=== PATIENT | male | born 1950 | race Caucasian/White ===

== ENCOUNTER 2020-08-16 09:46 | Emergency (ER) | payer MEDICARE, SELFPAY ==
--- NOTE | ~2020-08-16 | XR_ITS ---
EXAMINATION: XR chest 1V portable EXAM DATE: 08/16/2020 10:55 INDICATION: Cough and shortness of breath. History high blood pressure. TECHNIQUE: Portable AP frontal chest x-ray was obtained. Comparison is made to prior examination from 04/26/2016. FINDINGS: The lungs are clear. There are no pleural effusions. Cardiac silhouette is prominent but magnified on this AP technique. There is no pneumothorax suspected. The bones and soft tissues are unremarkable. IMPRESSION: No acute cardiopulmonary findings. Reviewed, dictated and finalized at location B. COORDINATOR
[2020-08-16 09:56] VITALS: BP 158/79; PULSE 56; RESP 13; TEMP 36.7; O2SAT 96
[2020-08-16 10:01] VITALS: O2SAT 96
--- NOTE | 2020-08-16 10:38 | ED.GENADULT ---
HPI - General Adult General Chief complaint: Upper Respiratory Infection Stated complaint: cough Time Seen by Provider: 08/16/20 10:08 Source: patient History of Present Illness HPI narrative: Patient is a 70 y/o male complaining of severe cough for 1 week. He states that his cough is mostly dry and it's relieved by OTC cough medicine. He also has a headache. He has no fever or chill. He had an episode of SOB a few days ago, but does not feel SOB at this time. He was in contact with someone who later tested for COVID recently. He states that his doctor called in an antibiotic last week. Related Data Home Medications Medication Instructions Recorded Confirmed hydroxychloroquine 200 mg tablet 400 mg PO DAILY tablet 06/25/19 sildenafil (pulm.hypertension) 20 100 mg PO DAILY PRN tablet 06/25/19 mg tablet pentoxifylline 400 mg 400 mg PO TID 03/04/20 03/04/20 tablet,extended release Allergies Allergy/AdvReac Type Severity Reaction Status Date / Time No Known Allergies Allergy Uncoded 05/28/19 07:30 Review of Systems Constitutional: Constitutional: Denies chills, Denies fever(s), Reports headache(s) and Denies weakness Eyes: Eyes: Denies blurry vision ENT: Reports headache(s) and Denies neck pain Cardiovascular: Cardiovascular: Denies chest pain and Reports dyspnea Respiratory: Respiratory: Reports cough and Reports dyspnea Gastrointestinal: Gastrointestinal: Denies abdominal pain, Denies diarrhea, Denies nausea and Denies vomiting Genitourinary: Genitourinary: Denies hematuria and Denies dysuria Musculoskeletal: Musculoskeletal: Denies back pain and Denies neck pain Neurologic: Reports headache(s) and Denies weakness [facility] Past Medical History Medical History (Updated 08/16/20 @ 12:58 by Lidya Sanabria MD) Acute bronchitis Exposure to COVID-19 virus Family History Family History (Updated 02/13/19 @ 14:45 by DOCTOR UNKNOWN) Mother Patient's mother is , Onset Age: 92 Grandparent Cerebrovascular accident, Onset Age: 88 Father Family history of lung cancer, Onset Age: 58 Social History Social History Smoking status: Never smoker Alcohol intake: current Gender identity (if verbalized by the patient): Male Exam Const: General: no acute distress and well developed Orientation/consciousness: oriented to person, oriented to place, oriented to time and patient oriented x3 HENMT: Head: normocephalic Ears: external ears normal General nose exam: Normal external nose present Eyes: General: appearance normal, both eyes and all related structures Conjunctivae: conjunctivae normal Neck: Neck: normal visual inspection and full ROM Chest: Chest palpation & inspection: normal inspection of the chest and no tenderness Resp: Effort & Inspection: normal respiratory effort and able to speak in complete sentences Cardio: Rate: regular rate Rhythm: regular rhythm GI: GI Palp: No abdominal tenderness and Yes Soft to palpation Skin: General skin exam: normal color and turgor normal Neuro: General: oriented to person, oriented to place, oriented to time and patient oriented x3 Cognition (Neuro): normal cognition Extrem: General: normal to inspection, full ROM and no pedal edema Psych: Appearance: grossly normal Mental Status: mental status grossly normal Affect: normal affect Course Vital Signs Vital signs: Vital Signs Temperature 36.7 C 08/16/20 09:56 Pulse Rate 56 L 08/16/20 09:56 Respiratory Rate 13 08/16/20 09:56 Blood Pressure 158/79 H 08/16/20 09:56 Pulse Oximetry 96 08/16/20 09:56 Temperature 36.7 C 08/16/20 09:56 Pulse Rate 78 08/16/20 13:04 Respiratory Rate 18 08/16/20 13:04 Blood Pressure 132/68 08/16/20 13:04 Pulse Oximetry 99 08/16/20 13:04 Medical Decision Making Vital Signs Vital Signs: Vital Signs Temperature 36.7 C 08/16/20 09:56 Pulse Rate 56 L 08/16/20 09:56 R
[2020-08-16 11:34] LABS: Eosinophils Percent Auto 0.4 % (0-4.4); Hematocrit 42.9 % (42.0-52.0); Hemoglobin 14.8 g/dL (14.0-18.0); Immature Granulocyte Absolute 0.02 K/mm3 (0.00-0.031); Immature Granulocyte Percent A 0.7 % (0-0.5); Lymphocytes Absolute Auto 0.54 K/mm3 (0.9-3.2); Lymphocytes Percent Auto 19.5 % (18.3-44.2); Mean Corpuscular HGB Conc 34.5 g/dl (32-36); Mean Corpuscular Hemoglobin 32.4 pg (26-34); Mean Corpuscular Volume 93.9 fl (80-100); Mean Platelet Volume 9.2 fl (7.4-10.4); Monocytes Absolute Auto 0.3 K/mm3 (0.1-0.6); Monocytes Percent Auto 11.9 % (2.6-8.5); Neutrophils Absolute Auto 1.9 K/mm3 (1.3-6.7); Neutrophils Percent Auto 67.5 % (45.5-73.1); Platelet Count Result 113 k/mm3 (150-375); Red Blood Count 4.57 M/mm3 (4.6-6.20); Red Cell Distribution Width 11.9 % (11.5-14.5); White Blood Count 2.8 K/mm3 (4.5-10.0)
[2020-08-16 11:54] LABS: Alanine Aminotransferase 37 U/L (4-50); Albumin Level 3.9 g/dL (3.5-5.1); Alkaline Phosphatase 39 U/L (38-126); Anion Gap 6 mmol/L (8-16); Aspartate Amino Transferase 43 U/L (17-59); Bilirubin,Total 0.7 mg/dL (0.2-1.3); Blood Urea Nitrogen 17 mg/dL (9-20); Calcium 8.5 mg/dL (8.4-10.2); Carbon Dioxide 29 mmol/L (22-30); Chloride 105 mmol/L (98-107); Estimated CRCL calculation 70 ml/min; Estimated Glomerular Filt Rate > 60; Glucose 93 mg/dL (75-110); Sodium 140 mmol/L (137-145)
[2020-08-16 12:38] VITALS: BP 100/73; PULSE 55; RESP 18; O2SAT 99
[2020-08-16 13:04] VITALS: BP 132/68; PULSE 78; RESP 18; O2SAT 99
[2020-08-16 19:06] LABS: SARS-CoV-2 RNA PCR Positive
== END 2020-08-16 13:06 | disposition home or self-care (01) ==
PROVIDERS: Emergency Provider Emergency Medicine; PCP Family Medicine
DX: U07.1 COVID-19 (principal); J06.9 Acute upper respiratory infection, unspecified
CPT/HCPCS: 36415; 71045; 80053; 85025; 99283; C9803; U0003

== ENCOUNTER 2020-08-19 10:30 | Outpatient (RCR) | payer MEDICARE, SELFPAY ==
--- NOTE | 2020-08-18 16:06 | PC.NURSE ---
Patient given instruction on Bamlanivimab treatment with understanding stated.
[2020-08-19] MEDS: ACETAMINOPHEN 325 MG TABLET 650 MG PO (10:44)
[2020-08-19] MEDS: diphenhydrAMINE HCl CAP 25 MG CAPSULE PO (10:44)
[2020-08-19] MEDS: FAMOTIDINE 20 MG TABLET PO (10:45)
--- NOTE | 2020-08-19 10:50 | PC.NURSE ---
Patient given written instruction on Bamlanivimab-discharge instruction sheet and facts sheet with understanding stated.
[2020-08-19 11:00] VITALS: BP 138/66; PULSE 48; RESP 18; TEMP 36.9; O2SAT 98
[2020-08-19 12:20] VITALS: BP 136/81; PULSE 45; O2SAT 97
--- NOTE | 2020-08-20 12:37 | PC.NURSE ---
Attempt to reach patient to check on him after his infusion for Covid.
== END 2020-08-30 11:20 ==
LOC: AMCINF 10:30
PROVIDERS: PCP Family Medicine; Visit Provider Family Medicine
DX: Z23 Encounter for immunization (principal); U07.1 COVID-19; I10 Essential (primary) hypertension
CPT/HCPCS: A9270; J7050; M0239; Q0239

== ENCOUNTER 2021-01-17 10:45 | Outpatient (CLI) | payer MEDICARE, SELFPAY ==
--- NOTE | 2021-01-17 11:12 | EST_ITS ---
Patient Info Name: Eric Rebollar Age: 70 years : 1950 Gender: Male Ht: 70 in Wt: 205 lbs BSA: 2.17 m2 Exam Date: 01/17/2021 11:18 AM Exam Location: [facility] Stress Patient Status: Outpatient Admit Date: 01/17/2021 Staff Ordering Physician: Sudeep Burnett MD Attending Provider: Sudeep Burnett MD Exercise Technologist: Brandie Monaco RDCS Exercise Physician: Lavelle Vallejo DO Exam Type: CA stress test treadmill Study Info Indications R06.00 - Dyspnea, unspecified An exercise stress test was performed. Summary 1. 1. Inconclusive Charles exercise stress test for ischemic ST changes by ECG criteria due to achieving only 57% of MPHR for age group. He is on Metoprolol and last dose was 24 hours ago. 2. 2. Reduced functional capacity, achieving 7 METs of workload. 3. 3. Baseline slow sinus bradycardia. 4. 4. No imaging with stress testing. 5. 5. Patient informed of the above results. Protocol: Charles Stress ECG Details Stage: REST Duration (min): 8 min : 25 sec Speed (mph): 0.0 Grade (%): 0 HR (bpm): 44 SBP (mmHg): 137 DBP (mmHg): 78 METS: --- Stage: REST Duration (min): 8 min : 36 sec Speed (mph): 0.0 Grade (%): 0 HR (bpm): 43 SBP (mmHg): 137 DBP (mmHg): 78 METS: --- Stage: REST Duration (min): 8 min : 48 sec Speed (mph): 0.0 Grade (%): 0 HR (bpm): 43 SBP (mmHg): 137 DBP (mmHg): 78 METS: --- Stage: REST Duration (min): 9 min : 11 sec Speed (mph): 0.0 Grade (%): 0 HR (bpm): 43 SBP (mmHg): 137 DBP (mmHg): 78 METS: --- Stage: REST Duration (min): 9 min : 25 sec Speed (mph): 0.0 Grade (%): 0 HR (bpm): 44 SBP (mmHg): 137 DBP (mmHg): 78 METS: --- Stage: REST Duration (min): 9 min : 50 sec Speed (mph): 0.0 Grade (%): 0 HR (bpm): 43 SBP (mmHg): 137 DBP (mmHg): 78 METS: --- Stage: REST Duration (min): 10 min : 35 sec Speed (mph): 0.0 Grade (%): 0 HR (bpm): 44 SBP (mmHg): 137 DBP (mmHg): 78 METS: --- Stage: REST Duration (min): 11 min : 53 sec Speed (mph): 0.0 Grade (%): 0 HR (bpm): 45 SBP (mmHg): 137 DBP (mmHg): 78 METS: --- Stage: STAGE 1 Duration (min): 1 min : 0 sec Speed (mph): 1.7 Grade (%): 10 HR (bpm): 59 SBP (mmHg): 137 DBP (mmHg): 78 METS: --- Stage: STAGE 1 Duration (min): 2 min : 0 sec Speed (mph): 1.7 Grade (%): 10 HR (bpm): 67 SBP (mmHg): 137 DBP (mmHg): 78 METS: --- Stage: STAGE 1 Duration (min): 3 min : 0 sec Speed (mph): 1.7 Grade (%): 10 HR (bpm): 70 SBP (mmHg): 137 DBP (mmHg): 78 METS: --- Stage: STAGE 2 Duration (min): 1 min : 0 sec Speed (mph): 2.5 Grade (%): 12 HR (bpm): 79 SBP (mmHg): 172 DBP (mmHg): 77 METS: --- Stage: STAGE 2 Duration (min): 2 min : 0 sec
== END 2021-01-17 10:46 | disposition home or self-care (01) ==
PROVIDERS: PCP Family Medicine; Visit Provider Family Medicine
DX: R06.00 Dyspnea, unspecified (principal)
CPT/HCPCS: 93017

== ENCOUNTER 2021-12-04 11:10 | Emergency (ER) | payer MEDICARE, SELFPAY ==
[2021-12-04 11:13] VITALS: BP 130/84; PULSE 69; RESP 18; TEMP 37.1; O2SAT 100
--- NOTE | 2021-12-04 11:36 | PC.NURSE ---
Pt states he is unable to give urine sample at this time. Informed pt that we need urine and if unable to give sample we would have to straight cath pt. Pt states I doubt that is going to happen .
[2021-12-04 11:54] LABS: Basophils Percent Auto 0.2 % (0.2-1.2); Eosinophils Absolute Auto 0.1 K/mm3 (0-0.3); Eosinophils Percent Auto 0.8 % (0-4.4); Hematocrit 35.4 % (42.0-52.0); Hemoglobin 12.4 g/dL (14.0-18.0); Immature Granulocyte Absolute 0.07 K/mm3 (0.00-0.031); Immature Granulocyte Percent A 0.6 % (0-0.5); Lymphocytes Absolute Auto 0.89 K/mm3 (0.9-3.2); Lymphocytes Percent Auto 7.4 % (18.3-44.2); Mean Corpuscular Hemoglobin 32.5 pg (26-34); Mean Corpuscular Volume 92.9 fl (80-100); Mean Platelet Volume 9.7 fl (7.4-10.4); Monocytes Absolute Auto 1.1 K/mm3 (0.1-0.6); Monocytes Percent Auto 8.7 % (2.6-8.5); Neutrophils Absolute Auto 9.9 K/mm3 (1.3-6.7); Neutrophils Percent Auto 82.3 % (45.5-73.1); Platelet Count Result 187 k/mm3 (150-375); Red Blood Count 3.81 M/mm3 (4.6-6.20); Red Cell Distribution Width 12.7 % (11.5-14.5); White Blood Count 12.1 K/mm3 (4.5-10.0)
[2021-12-04 12:03] LABS: Lactic Acid Reflex 2.1 mmol/L (0.7-2.0)
[2021-12-04 12:06] LABS: Alanine Aminotransferase 42 U/L (4-50); Albumin Level 3.3 g/dL (3.5-5.1); Alkaline Phosphatase 53 U/L (38-126); Anion Gap 9 mmol/L (8-16); Aspartate Amino Transferase 47 U/L (17-59); Bilirubin,Total 0.9 mg/dL (0.2-1.3); Blood Urea Nitrogen 56 mg/dL (9-20); Calcium 8.2 mg/dL (8.4-10.2); Carbon Dioxide 26 mmol/L (22-30); Chloride 100 mmol/L (98-107); Estimated CRCL calculation 32 ml/min; Estimated Glomerular Filt Rate 30; Glucose 145 mg/dL (65-110); Potassium 2.8 mmol/L (3.4-5.0); Sodium 135 mmol/L (137-145)
--- NOTE | 2021-12-04 12:07 | ED.GENADULT ---
HPI - General Adult General Chief complaint: Weakness Stated complaint: Lethergy, Chills, PCP Sent Patient Time Seen by Provider: 12/04/21 11:31 Source: patient and RN notes reviewed Mode of arrival: ambulatory Limitations: no limitations History of Present Illness HPI narrative: 71-year-old male presented to the emergency department for evaluation of subjective fever, chills and generalized weakness since Sunday. Patient states when he was driving back home from out of town he began having increased fatigue and generalized weakness. Patient does describe intermittent chills. Patient states he has also had periods of sweating but has not measured his temperature. Patient states that the symptoms persisted through Sunday. Patient did take an at home COVID test that was negative. Patient had a phone call with his primary care physician and he was urged to present to the emergency department for evaluation. Patient denies any current chest pain or shortness of breath. Patient denies any abdominal pain and denies any associated nausea vomiting or diarrhea. Patient is vaccinated and boosted against COVID. Patient denies any prior history of enlarged prostate or urinary retention. Related Data Home Medications Medication Instructions Recorded Confirmed hydroxychloroquine 200 mg tablet 400 mg PO DAILY tablet 06/25/19 06/02/21 sildenafil (pulm.hypertension) 20 100 mg PO DAILY PRN tablet 06/25/19 06/02/21 mg tablet pentoxifylline 400 mg 400 mg PO TID 03/04/20 06/02/21 tablet,extended release atorvastatin 20 mg tablet 20 mg PO DAILY 06/03/21 hydrochlorothiazide 12.5 mg tablet 12.5 mg PO DAILY 06/03/21 cyanocobalamin (vitamin B-12) 1,000 mcg PO DAILY 11/18/21 1,000 mcg tablet Allergies Allergy/AdvReac Type Severity Reaction Status Date / Time No Known Allergies Allergy Unknown Uncoded 12/04/21 11:22 Review of Systems Review of Systems: CONSTITUTIONAL: See HPI EYES: Denies visual changes, redness, or discharge. ENT: Denies rhinorrhea, congestion, sore throat, or otalgia. CARDIOVASCULAR: Denies chest pain, palpitations, or edema. RESPIRATORY: Denies cough or dyspnea. GASTROINTESTINAL: Denies abdominal pain, nausea, vomiting, or diarrhea. GENITOURINARY: Denies dysuria or hematuria. SKIN: Denies rash or itching. MUSCULOSKELETAL: Denies back pain, joint pain, or myalgia. NEUROLOGIC: Denies headache, numbness, or weakness. [facility] Past Medical History Medical History (Updated 12/04/21 @ 18:27 by Yomi Gómez MD) Acute bronchitis Altitude sickness preventative measures BMI 31.0-31.9,adult Cognitive decline (~06/02/21) the patient scored 21/30 on his cognitive exam 06/02/2021 COVID-19 (08/16/20) Dyspnea on exertion Leukopenia WBC normal at 4.8 on 11/15/2021. Vitamin B12 deficiency anemia (11/15/21) Level low at 339 with goal greater than 400 on 11/15/2021. Family History Family History (Updated 02/13/19 @ 14:45 by DOCTOR UNKNOWN) Mother Patient's mother is , Onset Age: 92 Grandparent Cerebrovascular accident, Onset Age: 88 Father Family history of lung cancer, Onset Age: 58 Social History Social History (Updated 06/02/21 @ 10:42 by Pallavi Jimenez MA) Smoking status: Never smoker Alcohol intake: current Drinks per week: 3 Substance use: never Substance use type: does not use Gender identity (if verbalized by the patient): Male Spiritual care concerns: No Exam Narrative: APPEARANCE: Well appearing, no pain, no distress, well-nourished. HEAD: normocephalic, atraumatic. EYES: PERRLA/EOMI, conjunctivae clear. THROAT: Pharynx clear, no exudate. NECK: Supple. No adenopathy, no masses. RESPIRATORY: Airway patent, respirations nonlabored. Clear to auscultation bilaterally, no rales, rhonchi, wheezing. CARDIOVASCULAR: Regular rate and rhythm without murmurs rubs or gallops. ABDOMINAL: Soft, nontender, nondistended, normal bowel sounds
[2021-12-04] MEDS: POTASSIUM CHLORIDE 20 MEQ PACKET (FOR LIQUID) 40 MEQ PO (12:28)
[2021-12-04] MEDS: SODIUM CHLORIDE 0.9% IV 1,000 ML 999 ML IV CONT ×2 (12:28→14:56)
[2021-12-04] MEDS: KCL 20 MEQ/SW 100 ML 100 ML 50 MEQ IVPB (12:49)
[2021-12-04 13:00] VITALS: BP 123/78; PULSE 87; RESP 18; O2SAT 99
[2021-12-04] MEDS: SODIUM CHLORIDE 0.9% IV 1,000 ML 125 ML (13:41)
[2021-12-04 14:36] LABS: Influenza A QL RT-PCR Negative (Negative); Influenza B QL RT-PCR Negative (Negative); SARS-CoV-2 RNA PCR Negative
[2021-12-04 14:47] LABS: Reflex Lactic Acid Yes or No Add Lactic
[2021-12-04 15:11] VITALS: BP 136/74; PULSE 74; RESP 20; O2SAT 100
[2021-12-04 15:53] LABS: Anion Gap 9 mmol/L (8-16); Blood Urea Nitrogen 59 mg/dL (9-20); Calcium 8.3 mg/dL (8.4-10.2); Carbon Dioxide 25 mmol/L (22-30); Chloride 101 mmol/L (98-107); Estimated CRCL calculation 34 ml/min; Estimated Glomerular Filt Rate 31; Glucose 150 mg/dL (65-110); Potassium 2.8 mmol/L (3.4-5.0); Sodium 135 mmol/L (137-145)
[2021-12-04 16:16] VITALS: BP 91/59; PULSE 64; RESP 18; O2SAT 99
[2021-12-04 16:33] LABS: Potassium 3.4 mmol/L (3.4-5.0)
[2021-12-04 16:57] LABS: Anion Gap 7 mmol/L (8-16); Blood Urea Nitrogen 58 mg/dL (9-20); Calcium 7.7 mg/dL (8.4-10.2); Carbon Dioxide 24 mmol/L (22-30); Chloride 103 mmol/L (98-107); Estimated CRCL calculation 37 ml/min; Estimated Glomerular Filt Rate 35; Glucose 111 mg/dL (65-110); Potassium 3.5 mmol/L (3.4-5.0); Sodium 134 mmol/L (137-145)
[2021-12-04 17:18] LABS: Add Urine Microscopic? YES; Appearance Urine Cloudy (Clear); Bilirubin Urine Negative (Negative); Blood Urine Negative (Negative); Color Urine Amber (Yellow); Glucose Urine UA Negative (Negative); Ketones Urine Negative (Negative); Leukocyte Esterase Ur 1+ LEU/UL (Negative); Mucus Urine Few /lpf; Nitrate Urine Negative (Negative); Protein Urine 1+ mg/dL (Negative); Specific Grav Ur 1.021 (1.001-1.035); Squamous Epithelial Cell Urine Few /hpf (Few); WBC Urine 16-20 /hpf
[2021-12-04 18:23] VITALS: BP 146/89; PULSE 74; RESP 12; O2SAT 99
== END 2021-12-04 18:40 | disposition home or self-care (01) ==
PROVIDERS: Emergency Provider Emergency Medicine; PCP Family Medicine
DX: N17.9 Acute kidney failure, unspecified (principal); N39.0 Urinary tract infection, site not specified; Z20.822 Contact with and (suspected) exposure to COVID-19; Z79.899 Other long term (current) drug therapy; Z86.16 Personal history of COVID-19
CPT/HCPCS: 36415; 80048; 80053; 81001; 83605; 84132; 85025; 87086; 87088; 87502; 96361; 96365; 96366; 96375; 99284; A9270; C9803; J0696; J3480; J7030; U0003; U0005

== ENCOUNTER 2021-12-07 14:37 | Inpatient (IN) | payer MEDICARE, SELFPAY ==
[2021-12-07] VITALS (8 sets, daily range): BP systolic 86–124; BP diastolic 49–86; PULSE 66–86; RESP 16–18; TEMP 36.1–38.1; O2SAT 95–99; BMI 32.2
--- NOTE | ~2021-12-07 | CT_ITS ---
EXAMINATION: CT abdomen pelvis w con DATE: 12/07/2021 20:50 INDICATION: fevers, chills, tender prostate TECHNIQUE: Computed tomography (CT) of the abdomen and pelvis was performed with 100 mL Omnipaque-350 intravenous contrast. Automated exposure control and iterative reconstruction technique were employe d. The dose-length product was 824.81 mGy-cm. COMPARISON: None FINDINGS: Lower thorax: Bibasilar atelectasis. Liver: Simple left lobe cyst. Biliary/Gallbladder: Gallbladder is normal. No bile duct dilation. Spleen: Normal. Pancreas: Pancreas is enlarged, with surrounding inflammatory change. Well-circumscribed 1.7 cm cysti c lesion in the pancreatic body. Irregular 3 cm collection of fluid and gas in the pancreatic head im mediately adjacent to the duodenal C-loop. Adrenals:No mass. Kidneys: Bilateral stranding and cysts as well as lesions that are too small to characterize. GI tract: No small or large bowel dilation. Appendix not visualized. Mesentery/Peritoneum: No ascites, mass, or free air. Retroperitoneum: No mass.. Pelvis: Bladder wall thickening, likely on the basis of outlet obstruction from a markedly enlarged p rostate. Soft Tissues: Soft tissues and body wall unremarkable. Bones: No acute osseous finding. IMPRESSION: CT findings concerning for pancreatitis. Focal fluid and gas in the pancreatic may reflect involvemen t of a duodenal diverticulum versus focal pancreatic necrosis. 1.7 cm cyst in the pancreatic body, th is should be further characterized by nonemergent, outpatient pancreatic MR after the resolution of t he acute pancreatic process. Reviewed, dictated and finalized at location K. IMPRESSION: CT findings concerning for pancreatitis. Focal fluid and gas in the pancreatic may reflect involvement of a duodenal diverticulum versus focal pancreatic necr osis. 1.7 cm cyst in the pancreatic body, this should be further characterized by nonemergent, outpatient pancreatic MR after the resolution of the acute panc reatic process.
--- NOTE | ~2021-12-07 | XR_ITS ---
EXAMINATION: XR chest 2V Exam Date/Time: 12/07/2021 18:04 CDT CLINICAL HISTORY: chills,cough,BODY ACHESX 1WEEK HX COVID 08/26,HTN,BRONCHITIS Comparison: 04/26/2016 and 08/16/2020. RESULT: Lines, tubes, and devices: None. Lungs and pleura: Senescent changes. Linear scar/atelectasis in the right lung base. Bilateral poste rior costophrenic angle blunting. Cardiomediastinal silhouette: Stable cardiomediastinal silhouette. Other: No acute osseous or upper abdominal finding. IMPRESSION: Bibasilar scar/atelectasis. Small bilateral pleural effusions versus chronic pleural scarring. Reviewed, dictated and finalized at location K. IMPRESSION: Bibasilar scar/atelectasis. Small bilateral pleural effusions versus chronic pl eural scarring.
--- NOTE | 2021-12-07 17:55 | ED.GENADULT ---
HPI - General Adult General Chief complaint: Unspecified Stated complaint: chills, fever, ache Time Seen by Provider: 12/07/21 17:38 History of Present Illness HPI narrative: Patient is a 71-year-old male with a history of colon cancer s/p resection ([facility]) here for evaluation of fevers, chills, generalized malaise for the past week. States he develops intermittent episodes of 45 minutes of chills in addition to lower extremity body aches, which resolve without intervention. Temps at home have been 101, but are brought down after Tylenol. Does note some difficulty rising from a chair during these periods due to some weakness. Patient was seen here last week for the same, was diagnosed with UTI, but denies improvement after antibiotics at home. Denies tick bites, rashes, weight loss. Over the past 2 days he has developed a cough and some sinus congestion. He has been vaccinated against COVID and flu. Related Data Home Medications Medication Instructions Recorded Confirmed hydroxychloroquine 200 mg tablet 400 mg PO DAILY tablet 06/25/19 06/02/21 sildenafil (pulm.hypertension) 20 100 mg PO DAILY PRN tablet 06/25/19 06/02/21 mg tablet pentoxifylline 400 mg 400 mg PO TID 03/04/20 06/02/21 tablet,extended release atorvastatin 20 mg tablet 20 mg PO DAILY 06/03/21 hydrochlorothiazide 12.5 mg tablet 12.5 mg PO DAILY 06/03/21 cyanocobalamin (vitamin B-12) 1,000 mcg PO DAILY 11/18/21 1,000 mcg tablet Allergies Allergy/AdvReac Type Severity Reaction Status Date / Time No Known Allergies Allergy Unknown Uncoded 12/07/21 18:12 Review of Systems Review of Systems: Gen.: Reports fevers and chills. Eyes: Denies eye pain or visual change ENT: Denies congestion Respiratory: Denies shortness of breath or cough CV: Denies chest pain or palpitations GI: Reports nausea and vomiting. Denies abdominal pain or diarrhea : Positive for urinary retention. Denies burning, urgency, frequency or hematuria Musculoskeletal: Denies back pain or muscle pain Neuro: Denies numbness, tingling, weakness or focal weakness Skin: Denies rash Except as documented, all other systems reviewed and negative PMF Past Medical History Medical History (Updated 12/05/21 @ 00:00 by Background Daemon) Acute bronchitis Altitude sickness preventative measures BMI 31.0-31.9,adult Cognitive decline (~06/02/21) the patient scored 21/30 on his cognitive exam 06/02/2021 COVID-19 (08/16/20) Dyspnea on exertion Leukopenia WBC normal at 4.8 on 11/15/2021. Vitamin B12 deficiency anemia (11/15/21) Level low at 339 with goal greater than 400 on 11/15/2021. Family History Family History (Updated 02/13/19 @ 14:45 by DOCTOR UNKNOWN) Mother Patient's mother is , Onset Age: 92 Grandparent Cerebrovascular accident, Onset Age: 88 Father Family history of lung cancer, Onset Age: 58 Social History Social History (Updated 06/02/21 @ 10:42 by Pallavi Jimenez MA) Smoking status: Never smoker Alcohol intake: current Drinks per week: 3 Substance use: never Substance use type: does not use Gender identity (if verbalized by the patient): Male Spiritual care concerns: No Exam Narrative: APPEARANCE: Well appearing, no pain in distress, well-nourished. Head: normocephalic and atraumatic. EYES: PERRLA/EOMI, conjunctivae clear NOSE: No nasal drainage EARS: External ear normal in appearance THROAT: Oropharynx is clear. Mucous membranes are moist. NECK: Supple. No adenopathy, no masses. RESPIRATORY: Airway patent, respirations nonlabored. Clear to auscultation bilaterally, no rales, rhonchi, wheezing. Coughing throughout exam. CARDIOVASCULAR: Regular rate and rhythm without murmurs, rubs, or gallops. : Exam performed with faye Randolph RN. Prostate boggy and exquisitely tender. ABDOMINAL: Normoactive bowel sounds. Soft, nontender, nondistended. No rebound tenderness or guarding. MUSCULOSKEL
[2021-12-07 18:44] LABS: Basophils Percent Auto 0.3 % (0.2-1.2); Eosinophils Absolute Auto 0.4 K/mm3 (0-0.3); Eosinophils Percent Auto 4.1 % (0-4.4); Hematocrit 34.6 % (42.0-52.0); Hemoglobin 11.3 g/dL (14.0-18.0); Immature Granulocyte Absolute 0.14 K/mm3 (0.00-0.031); Immature Granulocyte Percent A 1.5 % (0-0.5); Lymphocytes Absolute Auto 0.95 K/mm3 (0.9-3.2); Lymphocytes Percent Auto 10.2 % (18.3-44.2); Mean Corpuscular HGB Conc 32.7 g/dl (32-36); Mean Platelet Volume 9.3 fl (7.4-10.4); Monocytes Absolute Auto 0.5 K/mm3 (0.1-0.6); Monocytes Percent Auto 4.8 % (2.6-8.5); Neutrophils Absolute Auto 7.3 K/mm3 (1.3-6.7); Neutrophils Percent Auto 79.1 % (45.5-73.1); Platelet Count Result 288 k/mm3 (150-375); Red Blood Count 3.53 M/mm3 (4.6-6.20); Red Cell Distribution Width 13.3 % (11.5-14.5); White Blood Count 9.3 K/mm3 (4.5-10.0)
[2021-12-07 18:53] LABS: Creatine Kinase 37 U/L (55-170)
[2021-12-07 18:55] LABS: Alanine Aminotransferase 64 U/L (4-50); Albumin Level 3.3 g/dL (3.5-5.1); Alkaline Phosphatase 134 U/L (38-126); Anion Gap 7 mmol/L (8-16); Aspartate Amino Transferase 49 U/L (17-59); Bilirubin,Total 0.5 mg/dL (0.2-1.3); Blood Urea Nitrogen 42 mg/dL (9-20); Calcium 8.6 mg/dL (8.4-10.2); Carbon Dioxide 27 mmol/L (22-30); Chloride 101 mmol/L (98-107); Estimated CRCL calculation 43 ml/min; Estimated Glomerular Filt Rate 46; Glucose 146 mg/dL (65-110); Potassium 3.6 mmol/L (3.4-5.0); Sodium 135 mmol/L (137-145)
[2021-12-07 19:30] LABS: Appearance Urine Clear (Clear); Bilirubin Urine Negative (Negative); Blood Urine Negative (Negative); Color Urine Yellow (Yellow); Glucose Urine UA Negative (Negative); Ketones Urine Negative (Negative); Leukocyte Esterase Ur Negative LEU/UL (Negative); Nitrate Urine Negative (Negative); Protein Urine Trace mg/dL (Negative); Urobilinogen Urine 0.2 mg/dL (<2.0)
[2021-12-07 19:44] LABS: Add Urine Microscopic? YES; Mucus Urine Rare /lpf; RBC Urine 0-2 /hpf (0-2)
[2021-12-07] MEDS: cefTRIAXone 1 GM VIAL IM (19:46)
[2021-12-07 19:48] LABS: Lactic Acid Reflex 4.7 mmol/L (0.7-2.0)
[2021-12-07 19:49] LABS: Influenza A QL RT-PCR Negative (Negative); Influenza B QL RT-PCR Negative (Negative); SARS-CoV-2 RNA PCR Negative
[2021-12-07] MEDS: SODIUM CHLORIDE 0.9% IV 1,000 ML 999 ML IV CONT (20:35)
[2021-12-07 22:13] LABS: Lipase 3285 U/L (23-300)
[2021-12-07 22:34] LABS: Reflex Lactic Acid Yes or No Add Lactic
--- NOTE | 2021-12-07 22:52 | ADMGEN ---
This patient, Eric Rebollar, was admitted to [address] [place] [address] Room 307-02. Patient/family oriented to hospital policies and general routines including ID bracelet, bed and alarms, visiting hours, pain management, procedures, bathroom and other care routines, personal items, smoking policy, room service/diet, and visiting hours. Information on how to activate the Rapid Response Team has been discussed. Patient/Family are encouraged to report perceived risks to care and to ask questions if they do not understand what they are told or what they should do.
[2021-12-07 23:48] LABS: Lactic Acid 0.9 mmol/L (0.7-2.0)
[2021-12-08 00:01] VITALS: BMI 30.3
--- NOTE | 2021-12-08 04:56 | PM.IMHP ---
H&P: HPI History of Present Illness Date/Time: Greater than 30 minutes spent reviewing chart, evaluating, treating, and counseling patient. Anticipate greater than 48 hours admission, will admit as inpatient. 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 Presented 12/04 to ED with c/o fevers/chills starting that day. Patient reports he had been having issues with trouble urinating, discomfort with urination, and hematuria. UA at that time concerning for UTI. Patient was given one dose of rocephin and sent home on keflex. Patient states he felt better after leaving ED, however his symptoms of fevers/chills came back. Patient also reports rigors and malaise. Due to this he returned to ED. Patient denies SOB, CP, n/v/d/c, blood in stool. In ED patient febrile, pressure soft. Labs remarkable for normal white count, normocytic anemia, Cr 1.5. UA negative for nitrate or leuk esterases. CT A/P showing enlarged prostate and bladder wall thickening as well as findings concerning for pancreatitis. Patient given 1 L IVF and dose of rocephin. Blood cultures and urine culture pending. Chief Complaint: fevers/chills Review of Systems Review of Systems: 10 point ROS negative unless otherwise specified per HPI [facility] Past Medical History Medical History (Updated 12/08/21 @ 06:33 by Drew Bautista DO) Acute bronchitis Altitude sickness preventative measures BMI 31.0-31.9,adult Cognitive decline (~06/02/21) the patient scored 21/30 on his cognitive exam 06/02/2021 COVID-19 (08/16/20) Dyspnea on exertion Leukopenia WBC normal at 4.8 on 11/15/2021. Vitamin B12 deficiency anemia (11/15/21) Level low at 339 with goal greater than 400 on 11/15/2021. Family History Family History Mother Patient's mother is , Onset Age: 92 Grandparent Cerebrovascular accident, Onset Age: 88 Father Family history of lung cancer, Onset Age: 58 Social History Social History (Updated 10/28/21 @ 10:42 by Pallavi iJmenez MA) Smoking status: Never smoker Alcohol intake: current Drinks per week: 2 Substance use: never Substance use type: does not use Gender identity (if verbalized by the patient): Male Spiritual care concerns: No Meds Home Medications and Allergies Home Medications Medication Instructions Recorded Confirmed Type hydroxychloroquine 200 mg tablet 400 mg PO DAILY tablet 06/25/19 12/08/21 History sildenafil (pulm.hypertension) 20 100 mg PO DAILY PRN tablet 06/25/19 12/08/21 History mg tablet pentoxifylline 400 mg 400 mg PO TID 03/04/20 12/08/21 History tablet,extended release buspirone 15 mg tablet 15 mg PO BID #60 tablet 12/28/20 12/08/21 Rx lisinopril 40 mg tablet 40 mg PO DAILY #90 tablet 06/02/21 12/08/21 Rx hydrochlorothiazide 12.5 mg tablet 25 mg PO DAILY 06/03/21 12/08/21 History acetazolamide 125 mg tablet 125 mg PO BID PRN #10 tablet 08/09/21 12/08/21 Rx cyanocobalamin (vitamin B-12) 1,000 mcg PO DAILY 11/18/21 12/08/21 History 1,000 mcg tablet cephalexin 500 mg PO Q12H 7 Days #14 cap 12/04/21 12/08/21 Rx atorvastatin [Lipitor] 20 mg PO DAILY 12/08/21 12/08/21 History azathioprine 50 mg PO DAILY 12/08/21 12/08/21 History Allergies Allergy/AdvReac Type Severity Reaction Status Date / Time No Known Allergies Allergy Unknown Uncoded 12/07/21 18:12 Vital Signs Vital Signs - 24 hr 12/07/21 15:21 12/07/21 18:12 12/07/21 19:30 Temperature 97.0 F L Pulse Rate 66 70 72 Respiratory Rate 18 16 16 Blood Pressure 104/57 L 124/86 116/72 Pulse Oximetry 96 99 97 12/07/21 21:00 12/07/21 22:14 12/07/21 22:19 Temperature Pulse Rate 80 85 Respiratory Rate 18 18 Blood Pressure 108/68 86/51 L 92/49 L Pulse Oximetry 96 96 12/07/21 23:21 Temperature 100.6 F H Pulse Rate 85 Respiratory Rate 18 Blood Press
[2021-12-08 05:16] VITALS: BP 99/61; PULSE 64; RESP 18; TEMP 37.2; O2SAT 97
[2021-12-08] MEDS: CIPROFLOXACIN 400 MG/D5W 200ML 200 ML 200 MG IVPB ×2 (05:52→17:07)
[2021-12-08] MEDS: LACTATED RINGERS 1,000 ML 999 ML IV CONT ×2 (05:53→07:16)
[2021-12-08 06:36] LABS: Basophils Percent Auto 0.3 % (0.2-1.2); Eosinophils Absolute Auto 0.1 K/mm3 (0-0.3); Hematocrit 29.3 % (42.0-52.0); Hemoglobin 10.1 g/dL (14.0-18.0); Immature Granulocyte Absolute 0.13 K/mm3 (0.00-0.031); Immature Granulocyte Percent A 1.2 % (0-0.5); Lymphocytes Absolute Auto 0.89 K/mm3 (0.9-3.2); Lymphocytes Percent Auto 8.2 % (18.3-44.2); Mean Corpuscular HGB Conc 34.5 g/dl (32-36); Mean Corpuscular Hemoglobin 32.8 pg (26-34); Mean Corpuscular Volume 95.1 fl (80-100); Mean Platelet Volume 9.1 fl (7.4-10.4); Monocytes Absolute Auto 0.8 K/mm3 (0.1-0.6); Monocytes Percent Auto 7.5 % (2.6-8.5); Neutrophils Absolute Auto 8.9 K/mm3 (1.3-6.7); Neutrophils Percent Auto 81.8 % (45.5-73.1); Platelet Count Result 280 k/mm3 (150-375); Red Blood Count 3.08 M/mm3 (4.6-6.20); Red Cell Distribution Width 13.2 % (11.5-14.5); White Blood Count 10.9 K/mm3 (4.5-10.0)
[2021-12-08 07:00] LABS: Alanine Aminotransferase 57 U/L (4-50); Albumin Level 2.8 g/dL (3.5-5.1); Alkaline Phosphatase 135 U/L (38-126); Anion Gap 8 mmol/L (8-16); Aspartate Amino Transferase 50 U/L (17-59); Bilirubin,Total 0.5 mg/dL (0.2-1.3); Blood Urea Nitrogen 33 mg/dL (9-20); Calcium 7.9 mg/dL (8.4-10.2); Carbon Dioxide 23 mmol/L (22-30); Chloride 104 mmol/L (98-107); Estimated CRCL calculation 50 ml/min; Estimated Glomerular Filt Rate 50; Glucose 125 mg/dL (65-110); Potassium 3.7 mmol/L (3.4-5.0); Sodium 135 mmol/L (137-145)
[2021-12-08 07:00] LABS: Hemoglobin A1C 5.2 % (<5.7)
--- NOTE | 2021-12-08 07:19 | WPDURCON ---
Assessment and Plan Assessment and plan (1) Abnormal finding on CT scan: Code(s): R93.89 - Abnormal findings on diagnostic imaging of other specified body structures Status: Acute (2) Acute prostatitis with hematuria: Code(s): N41.0 - Acute prostatitis Status: Acute Assessment and Plan: Clinically, patient appears to have had a recent lower urinary tract infection that is improved with oral antibiotics. His overall clinical picture, however, is not consistent with tract infection. I suspect the inflammatory findings in/around his pancreas are a contributing factor. Urology Consult Note HPI Date Seen: 12/08/21 Requesting Physician: Drew Bautista DO Primary Care Provider: Sudeep Burnett MD Consult Narrative Narrative: Eric Rebollar is a 71 year old male Without prior urological history until he presented to the emergency department several days ago with mild irritable voiding symptoms and generalized weakness, malaise and fever for several days. At that time his urinalysis showed mild pyuria but it appears as if a urine culture was not done. He was treated with a dose of ceftriaxone followed by oral cephalexin. His voiding symptoms resolved but his constitutional symptoms persist. Prior to this episode patient had symptoms of mild BPH, specifically reporting a slow stream with 1 time per. He has no prior history of urinary tract infection urolithiasis or hematuria. He denies abdominal pain nausea/vomiting or change in stool Review of Systems Constitutional: Constitutional: Reports chills, Reports fatigue and Reports malaise Cardiovascular: Cardiovascular: Denies chest pain, Denies lightheadedness, Denies palpitations and Denies dyspnea Respiratory: Respiratory: Denies dyspnea Gastrointestinal: Gastrointestinal: Denies diarrhea, Denies nausea and Denies vomiting Genitourinary: Genitourinary: Denies hematuria and Denies dysuria Endocrine: Endocrine: Denies palpitations [facility] Past Medical History Medical History Acute bronchitis Altitude sickness preventative measures BMI 31.0-31.9,adult Cognitive decline (~06/02/21) the patient scored 21/30 on his cognitive exam 06/02/2021 COVID-19 (08/16/20) Dyspnea on exertion Leukopenia WBC normal at 4.8 on 11/15/2021. Vitamin B12 deficiency anemia (11/15/21) Level low at 339 with goal greater than 400 on 11/15/2021. Family History Family History Mother Patient's mother is , Onset Age: 92 Grandparent Cerebrovascular accident, Onset Age: 88 Father Family history of lung cancer, Onset Age: 58 Social History Social History Smoking status: Never smoker Alcohol intake: current Drinks per week: 2 Substance use: never Substance use type: does not use Gender identity (if verbalized by the patient): Male Spiritual care concerns: No Meds Home Medications and Allergies Home Medications Medication Instructions Recorded Confirmed Type hydroxychloroquine 200 mg tablet 400 mg PO DAILY tablet 06/25/19 12/08/21 History sildenafil (pulm.hypertension) 20 100 mg PO DAILY PRN tablet 06/25/19 12/08/21 History mg tablet pentoxifylline 400 mg 400 mg PO TID 03/04/20 12/08/21 History tablet,extended release buspirone 15 mg tablet 15 mg PO BID #60 tablet 12/28/20 12/08/21 Rx lisinopril 40 mg tablet 40 mg PO DAILY #90 tablet 06/02/21 12/08/21 Rx hydrochlorothiazide 12.5 mg tablet 25 mg PO DAILY 06/03/21 12/08/21 History acetazolamide 125 mg tablet 125 mg PO BID PRN #10 tablet 08/09/21 12/08/21 Rx cyanocobalamin (vitamin B-12) 1,000 mcg PO DAILY 11/18/21 12/08/21 History 1,000 mcg tablet cephalexin 500 mg PO Q12H 7 Days #14 cap 12/04/21 12/08/21 Rx atorvastatin [Lipitor] 20 mg PO DAILY 12/08/21 12/08/21 History az
[2021-12-08] MEDS: busPIRone HCL 5 MG TABLET 15 MG PO ×2 (09:01→17:08)
[2021-12-08] MEDS: ATORVASTATIN 20 MG TABLET PO (09:01)
[2021-12-08] MEDS: HEPARIN SODIUM 5,000 UNITS/ML VIAL 5000 UNITS SUB-Q ×2 (09:02→21:14)
[2021-12-08] MEDS: CYANOCOBALAMIN 1,000 MCG TABLET 1000 MCG PO (09:02)
[2021-12-08 09:23] VITALS: O2SAT 97
--- NOTE | 2021-12-08 11:00 | PM.IMPN ---
Progress Note: A&P Assessment and Plan (1) Pancreatitis: Code(s): K85.90 - Acute pancreatitis without necrosis or infection, unspecified Status: Acute Assessment and Plan: Lipase 3285 AST/ALT 57/135 probably could be causing the prostatitis IV fluids Trend labs adjust therapy as indicated (2) Acute prostatitis with hematuria: Code(s): N41.0 - Acute prostatitis Status: Acute Assessment and Plan: UA on 12/04/21 yaima cloudy urine, 1+ leukocyte esterase, 16-20 WBC, 12/07/21 Yellow clear urine WBC 4-6 No urine culture reflex Continue cipro flomax given soft pressures for now. Blood and urine cx pending Urology on board (3) Hypotension: Code(s): I95.9 - Hypotension, unspecified Status: Acute Assessment and Plan: BP soft Fluid given Continue IV fluids Adjust therapy as indicated (4) Chronic depression: Code(s): F32.9 - Major depressive disorder, single episode, unspecified Status: Acute Assessment and Plan: continue buspar Trend mood (5) Cutaneous sarcoidosis: Code(s): D86.3 - Sarcoidosis of skin Status: Acute Assessment and Plan: Hold azathioprine, hydroxychlorquine, pentoxyfylline Restart when appropriate (6) Essential (primary) hypertension: Code(s): I10 - Essential (primary) hypertension Status: Acute Assessment and Plan: BP 89/47 3LNS given in the ed IV fluids started at 125ml/hr hold lisinopril and HCTZ (7) TALI (acute kidney injury): Code(s): N17.9 - Acute kidney failure, unspecified Status: Acute Assessment and Plan: BUN/Cr 33/1.40 Baseline looks to be 0.90-1.0 Suspect post-obstructive TALI Continue to monitor Trend labs IV fluids on board (8) Normocytic anemia: Code(s): D64.9 - Anemia, unspecified Status: Acute Assessment and Plan: Current H/H 10.1/29.3 Check irons studies in the am Supplement as indicated Unable to determine true cause until labs are collected Time Spent With Patient Time with patient: Greater than 35 minutes Subjective Date/time seen: 12/08/21 11:00 Interval history: 12/08/21 04:56 71 yo M PMHx of depression, h/o colon ca s/p resection, cutaneous sarcoidosis with concern for cardiac involvement, HTN/HLD. Presented 12/04 to ED with c/o fevers/chills starting that day. Patient reports he had been having issues with trouble urinating, discomfort with urination, and hematuria. UA at that time concerning for UTI. Patient was given one dose of rocephin and sent home on keflex. Patient states he felt better after leaving ED, however his symptoms of fevers/chills came back. Patient also reports rigors and malaise. Due to this he returned to ED. Patient denies SOB, CP, n/v/d/c, blood in stool. In ED patient febrile, pressure soft. Labs remarkable for normal white count, normocytic anemia, Cr 1.5. UA negative for nitrate or leuk esterases. CT A/P showing enlarged prostate and bladder wall thickening as well as findings concerning for pancreatitis. Patient given 1 L IVF and dose of rocephin. Blood cultures and urine culture pending. 12/09/21 1100 Patient stated that he is feeling better today. He did state that most of his symptoms were from Sunday, but he did state that they consisted of nausea, vomiting, belching and extreme body aches. He admits that urination is doing better than it has in a long while. It seems the symptoms are getting better, and explanation was given to the patient and his . Patient was started on fluids. Lipase is 3285 today. Liver enzymes are also elevated. UA did not look infectious. Patient does admit to drinking 1 beer and a cocktail a week. Patient denies any chest pain, shortness of breath, lightheadedness, dizziness, weakness, fatigue. Review of Systems Review of Systems: All systems reviewe
--- NOTE | 2021-12-08 11:00 | P.PNIM_ITS ---
Progress Note: A&P Assessment and Plan (1) Pancreatitis: Code(s): K85.90 - Acute pancreatitis without necrosis or infection, unspecified Status: Acute Assessment and Plan: * Lipase 3285 * AST/ALT 57/135 * probably could be causing the prostatitis * IV fluids * Trend labs * adjust therapy as indicated (2) Acute prostatitis with hematuria: Code(s): N41.0 - Acute prostatitis Status: Acute Assessment and Plan: * UA on 12/04/21 yaima cloudy urine, 1+ leukocyte esterase, 16-20 WBC, 12/07/21 Yellow clear urine WBC 4-6 * No urine culture reflex * Continue cipro * flomax given soft pressures for now. * Blood and urine cx pending * Urology on board (3) Hypotension: Code(s): I95.9 - Hypotension, unspecified Status: Acute Assessment and Plan: * BP soft * Fluid given * Continue IV fluids * Adjust therapy as indicated (4) Chronic depression: Code(s): F32.9 - Major depressive disorder, single episode, unspecified Status: Acute Assessment and Plan: * continue buspar * Trend mood (5) Cutaneous sarcoidosis: Code(s): D86.3 - Sarcoidosis of skin Status: Acute Assessment and Plan: * Hold azathioprine, hydroxychlorquine, pentoxyfylline * Restart when appropriate (6) Essential (primary) hypertension: Code(s): I10 - Essential (primary) hypertension Status: Acute Assessment and Plan: * BP 89/47 * 3LNS given in the ed * IV fluids started at 125ml/hr * hold lisinopril and HCTZ (7) TALI (acute kidney injury): Code(s): N17.9 - Acute kidney failure, unspecified Status: Acute Assessment and Plan: * BUN/Cr 33/1.40 * Baseline looks to be 0.90-1.0 * Suspect post-obstructive TALI * Continue to monitor * Trend labs * IV fluids on board (8) Normocytic anemia: Code(s): D64.9 - Anemia, unspecified Status: Acute Assessment and Plan: * Current H/H 10.1/29.3 * Check irons studies in the am * Supplement as indicated * Unable to determine true cause until labs are collected Time Spent With Patient Time with patient: Greater than 35 minutes Subjective Date/time seen: 12/08/21 11:00 Interval history: 12/08/21 04:56 71 yo M PMHx of depression, h/o colon ca s/p resection, cutaneous sarcoidosis with concern for cardiac involvement, HTN/HLD. Presented 12/04 to ED with c/o fevers/chills starting that day. Patient reports he had been having issues with trouble urinating, discomfort with urination, and hematuria. UA at that time concerning for UTI. Patient was given one dose of rocephin and sent home on keflex. Patient states he felt better after leaving ED, however his symptoms of fevers/chills came back. Patient also reports rigors and malaise. Due to this he returned to ED. Patient denies SOB, CP, n/v/d/c, blood in stool. In ED patient febrile, pressure soft. Labs remarkable for normal white count, normocytic anemia, Cr 1.5. UA negative for nitrate or leuk esterases. CT A/P showing enlarged prostate and bladder wall thickening as well as findings concerning for pancreatitis. Patient given 1 L IVF and dose of rocephin. Blood cultures and urine culture pending. 12/09/21 1100 Patient stated that he is feeling better today. He did state that most of his symptoms were from Sunday, but he did state
[2021-12-08] MEDS: SODIUM CHLORIDE 0.9% IV 1,000 ML 100 ML IV CONT ×2 (12:43→22:40)
[2021-12-08 14:00] VITALS: BP 89/47; PULSE 65; RESP 19; TEMP 37.3; O2SAT 95
[2021-12-08 22:00] VITALS: BP 100/54; PULSE 60; RESP 16; TEMP 37.2; O2SAT 100
[2021-12-09] MEDS: ALPRAZolam (*CRX) 0.25 MG TABLET PO (02:22)
[2021-12-09] MEDS: LORazepam INJ (*CRX) 2 MG/ML VIAL 1 MG IV PUSH (03:42)
[2021-12-09] MEDS: CIPROFLOXACIN 400 MG/D5W 200ML 200 ML 200 MG IVPB (05:58)
[2021-12-09 06:00] VITALS: BP 120/80; PULSE 111; RESP 18; TEMP 36.9; O2SAT 98
[2021-12-09] MEDS: SODIUM CHLORIDE 0.9% IV 1,000 ML 100 ML IV CONT (06:04)
[2021-12-09 06:41] LABS: Basophils Percent Auto 0.3 % (0.2-1.2); Eosinophils Absolute Auto 0.2 K/mm3 (0-0.3); Hematocrit 31.6 % (42.0-52.0); Hemoglobin 10.6 g/dL (14.0-18.0); Immature Granulocyte Absolute 0.13 K/mm3 (0.00-0.031); Immature Granulocyte Percent A 1.8 % (0-0.5); Lymphocytes Absolute Auto 0.78 K/mm3 (0.9-3.2); Mean Corpuscular HGB Conc 33.5 g/dl (32-36); Mean Corpuscular Hemoglobin 32.6 pg (26-34); Mean Corpuscular Volume 97.2 fl (80-100); Mean Platelet Volume 9.3 fl (7.4-10.4); Monocytes Absolute Auto 0.7 K/mm3 (0.1-0.6); Monocytes Percent Auto 9.6 % (2.6-8.5); Neutrophils Absolute Auto 5.3 K/mm3 (1.3-6.7); Neutrophils Percent Auto 74.3 % (45.5-73.1); Platelet Count Result 313 k/mm3 (150-375); Red Blood Count 3.25 M/mm3 (4.6-6.20); Red Cell Distribution Width 13.2 % (11.5-14.5); White Blood Count 7.1 K/mm3 (4.5-10.0)
[2021-12-09 06:50] LABS: Alanine Aminotransferase 62 U/L (4-50); Alkaline Phosphatase 134 U/L (38-126); Anion Gap 7 mmol/L (8-16); Aspartate Amino Transferase 51 U/L (17-59); Bilirubin,Total 0.4 mg/dL (0.2-1.3); Blood Urea Nitrogen 23 mg/dL (9-20); Calcium 8.2 mg/dL (8.4-10.2); Carbon Dioxide 23 mmol/L (22-30); Chloride 106 mmol/L (98-107); Estimated CRCL calculation 63 ml/min; Estimated Glomerular Filt Rate > 60; Glucose 148 mg/dL (65-110); Lipase 1014 U/L (23-300); Magnesium 1.9 mg/dL (1.6-2.3); Potassium 3.7 mmol/L (3.4-5.0); Sodium 136 mmol/L (137-145)
[2021-12-09 08:00] VITALS: PULSE 111; RESP 18; O2SAT 98
[2021-12-09] MEDS: CYANOCOBALAMIN 1,000 MCG TABLET 1000 MCG PO (09:49)
[2021-12-09] MEDS: ATORVASTATIN 20 MG TABLET PO (09:49)
[2021-12-09] MEDS: busPIRone HCL 5 MG TABLET 15 MG PO (09:49)
[2021-12-09] MEDS: HEPARIN SODIUM 5,000 UNITS/ML VIAL 5000 UNITS SUB-Q (09:49)
--- NOTE | 2021-12-09 10:00 | PM.DS ---
DS: Admitting Diagnosis Discharge Date 12/09/21 1000 Admitting Diagnosis Acute Pancreatitis DS: Discharge Diagnosis Discharge Diagnosis (1) Pancreatitis: Code(s): K85.90 - Acute pancreatitis without necrosis or infection, unspecified Status: Acute Assessment and Plan: Lipase down to 705 AST/ALT 57/135 probably could be causing the prostatitis IV fluids Trend labs adjust therapy as indicated This looks to be related to the azathioprine Lipid panel is triglycerides 155, cholesterol 101, LDL 50, HDL 15 (2) Acute prostatitis with hematuria: Code(s): N41.0 - Acute prostatitis Status: Acute Assessment and Plan: UA on 12/04/21 yaima cloudy urine, 1+ leukocyte esterase, 16-20 WBC, 12/07/21 Yellow clear urine WBC 4-6 No urine culture reflex Continue cipro flomax given soft pressures for now. Blood and urine cx no growth Urology on board (3) Hypotension: Code(s): I95.9 - Hypotension, unspecified Status: Acute Assessment and Plan: Resolved BP soft Fluid given Continue IV fluids Adjust therapy as indicated (4) Chronic depression: Code(s): F32.9 - Major depressive disorder, single episode, unspecified Status: Acute Assessment and Plan: continue buspar Trend mood (5) Cutaneous sarcoidosis: Code(s): D86.3 - Sarcoidosis of skin Status: Acute Assessment and Plan: Hold azathioprine, hydroxychlorquine, pentoxyfylline Restart when appropriate (6) Essential (primary) hypertension: Code(s): I10 - Essential (primary) hypertension Status: Acute Assessment and Plan: BP 148/98 3LNS given in the ed IV fluids started at 125ml/hr hold lisinopril and HCTZ (7) TALI (acute kidney injury): Code(s): N17.9 - Acute kidney failure, unspecified Status: Acute Assessment and Plan: BUN/Cr 23/1.10 Baseline looks to be 0.90-1.0 Suspect post-obstructive TALI Continue to monitor Trend labs IV fluids on board (8) Normocytic anemia: Code(s): D64.9 - Anemia, unspecified Status: Acute Assessment and Plan: Current H/H 10.6/31.6 Supplement as indicated Unable to determine true cause until labs are collected DS: Summary Hospital Course Hospital Course: Patient is a 71-year-old male with a past medical is history of depression, colon cancer, hypertension and hyperlipidemia who presented to the ED with complaints of fevers and chills. Patient was also complaining of issues urinating and stated that he had frequency and did not feel he was fully emptying. BUN creatinine were elevated and fluids were initiated. A CT of the abdomen and pelvis indicated the patient had acute pancreatitis. It was also noted the patient had a swollen prostate. Urology was consulted and patient was started on Flomax. Lipase was noted to be elevated 3285 along with patient's liver enzymes. IV fluids were initiated and patient was resuscitated. Patient was also noted to have hypotension which is also resolved with fluids. It was also noted that patient was on azathioprine which is known to cause pancreatitis. Patient has been recently started on that and started having after starting the drug. Patient had a very rough night last night however he is ready to go. Lipase is down to 705 and patient is stable for discharge at this time. Renal function has returned to normal. Patient is stable per labs and vital signs for discharge at this time. Status at Discharge Functional status at discharge: independent ambulation Overall status at discharge: patient is progressing back to baseline Time Spent with Patient Time attestation: Total time spent providing and/or coordinating discharge services: 42 minutes Time spent: Greater than 30 minutes Specific discharge activities: Diagnostic testing, chart review, developing a treatment
--- NOTE | 2021-12-09 10:00 | P.DS_ITS ---
DS: Admitting Diagnosis Discharge Date 12/09/21 1000 Admitting Diagnosis Acute Pancreatitis DS: Discharge Diagnosis Discharge Diagnosis (1) Pancreatitis: Code(s): K85.90 - Acute pancreatitis without necrosis or infection, unspecified Status: Acute Assessment and Plan: * Lipase down to 705 * AST/ALT 57/135 * probably could be causing the prostatitis * IV fluids * Trend labs * adjust therapy as indicated * This looks to be related to the azathioprine * Lipid panel is triglycerides 155, cholesterol 101, LDL 50, HDL 15 (2) Acute prostatitis with hematuria: Code(s): N41.0 - Acute prostatitis Status: Acute Assessment and Plan: * UA on 12/04/21 yaima cloudy urine, 1+ leukocyte esterase, 16-20 WBC, 12/07/21 Yellow clear urine WBC 4-6 * No urine culture reflex * Continue cipro * flomax given soft pressures for now. * Blood and urine cx no growth * Urology on board (3) Hypotension: Code(s): I95.9 - Hypotension, unspecified Status: Acute Assessment and Plan: * Resolved * BP soft * Fluid given * Continue IV fluids * Adjust therapy as indicated (4) Chronic depression: Code(s): F32.9 - Major depressive disorder, single episode, unspecified Status: Acute Assessment and Plan: * continue buspar * Trend mood (5) Cutaneous sarcoidosis: Code(s): D86.3 - Sarcoidosis of skin Status: Acute Assessment and Plan: * Hold azathioprine, hydroxychlorquine, pentoxyfylline * Restart when appropriate (6) Essential (primary) hypertension: Code(s): I10 - Essential (primary) hypertension Status: Acute Assessment and Plan: * BP 148/98 * 3LNS given in the ed * IV fluids started at 125ml/hr * hold lisinopril and HCTZ (7) TALI (acute kidney injury): Code(s): N17.9 - Acute kidney failure, unspecified Status: Acute Assessment and Plan: * BUN/Cr 23/1.10 * Baseline looks to be 0.90-1.0 * Suspect post-obstructive TALI * Continue to monitor * Trend labs * IV fluids on board (8) Normocytic anemia: Code(s): D64.9 - Anemia, unspecified Status: Acute Assessment and Plan: * Current H/H 10.6/31.6 * Supplement as indicated * Unable to determine true cause until labs are collected DS: Summary Hospital Course Hospital Course: Patient is a 71-year-old male with a past medical is history of depression, colon cancer, hypertension and hyperlipidemia who presented to the ED with complaints of fevers and chills. Patient was also complaining of issues urinating and stated that he had frequency and did not feel he was fully emptying. BUN creatinine were elevated and fluids were initiated. A CT of the abdomen and pelvis indicated the patient had acute pancreatitis. It was also noted the patient had a swollen prostate. Urology was consulted and patient was started on Flomax. Lipase was noted to be elevated 3285 along with patient's liver enzymes. IV fluids were initiated and patient was resuscitated. Patient was also noted to have hypotension which is also resolved with fluids. It was also noted that patient was on azathioprine which is known to cause pancreatitis. Patient has been recently started on that and started having after starting the drug. Patient had a very rough night last night however he is ready to go. Sakina
[2021-12-09] MEDS: SODIUM CHLORIDE 0.9% IV 1,000 ML 125 ML IV CONT (11:25)
[2021-12-09 11:59] VITALS: BP 130/95; PULSE 126
[2021-12-09 14:00] VITALS: BP 148/98; PULSE 125; RESP 20; TEMP 36.1; O2SAT 96
[2021-12-09 14:29] LABS: Cholesterol 101 mg/dL (0-200); HDL Direct 15 mg/dL; Lipase 705 U/L (23-300); Triglycerides 155 mg/dL (<150)
[2021-12-09 14:40] LABS: LDL Cholesterol Direct 50 mg/dL
--- NOTE | 2021-12-10 13:22 | ADMGEN ---
This patient, Eric Rebollar, was admitted to [address] [place] [address] Room 307-02. Patient/family oriented to hospital policies and general routines including ID bracelet, bed and alarms, visiting hours, pain management, procedures, bathroom and other care routines, personal items, smoking policy, room service/diet, and visiting hours. Information on how to activate the Rapid Response Team has been discussed. Patient/Family are encouraged to report perceived risks to care and to ask questions if they do not understand what they are told or what they should do.
--- NOTE | 2021-12-10 13:22 | PC.NURSE ---
Patient's called with questions regarding discharge medication list. Medications reviewed and questions addressed.
== END 2021-12-09 15:46 | disposition home or self-care (01) | DRG 439 ==
LOC: ANHED 21:40 → ANH3MEDSUR 12-08 06:39
PROVIDERS: Physician Assistant; Admitting Provider Internal Medicine; Emergency Provider Family Medicine; PCP Family Medicine; Visit Provider Nurse Practitioner
DX: K85.90 Acute pancreatitis without necrosis or infection, unspecified (principal); N41.0 Acute prostatitis; N17.9 Acute kidney failure, unspecified; I95.9 Hypotension, unspecified; F32.9 Major depressive disorder, single episode, unspecified; D86.3 Sarcoidosis of skin; I10 Essential (primary) hypertension; D64.9 Anemia, unspecified; R31.9 Hematuria, unspecified; E78.5 Hyperlipidemia, unspecified; D51.9 Vitamin B12 deficiency anemia, unspecified; Z20.822 Contact with and (suspected) exposure to COVID-19; Z85.038 Personal history of other malignant neoplasm of large intestine; Z86.16 Personal history of COVID-19
CPT/HCPCS: 36415; 71046; 74177; 80048; 80053; 80061; 81001; 82550; 83036; 83605; 83690; 83735; 84132; 85025; 87040; 87086; 87088; 87502; 96361; 96365; 96366; 96372; 96375; 99284; 99285; A9270; C9803; J0696; J0744; J1644; J2060; J3480; J7030; J7120; Q9967; U0003; U0005

== ENCOUNTER 2021-12-13 14:10 | Outpatient (CLI) | payer MEDICARE, SELFPAY ==
--- NOTE | ~2021-12-13 | XR_ITS ---
XR lumbar spine min 4V DATE: 12/13/2021 14:40 INDICATION: Low back pain radiating to both hips and legs. Recent prostate infection. TECHNIQUE: AP, lateral, bilateral oblique views, coned lateral lumbosacral view COMPARISON: None FINDINGS: There is diffuse osteopenia. There is a transitional first sacral vertebral sacralization pseudoarthrosis on the left, lumbarizati on on the right. There is prominent spurring at L1-2. There is moderate degenerative disc disease at L2-3, L3-4 and L5-S1, and and mild degenerative diseas e at L4-5. No fracture or bone destruction, spondylolysis or spondylolisthesis. The included lower thoracic and lumbar pedicles are intact. The sacroiliac joints are intact. IMPRESSION: Transitional first sacral vertebra Multilevel degenerative disc disease Reviewed, dictated and finalized at location B.
== END 2021-12-13 14:11 | disposition home or self-care (01) ==
PROVIDERS: PCP Family Medicine; Visit Provider Family Medicine
DX: M54.40 Lumbago with sciatica, unspecified side (principal); G89.29 Other chronic pain; M51.36 Other intervertebral disc degeneration, lumbar region
CPT/HCPCS: 72110

== ENCOUNTER 2022-01-05 14:02 | Outpatient (CLI) | payer MEDICARE, SELFPAY ==
--- NOTE | ~2022-01-05 | MR_ITS ---
EXAMINATION: MR lumbar spine wo con DATE: 01/05/2022 14:47 INDICATION: Lumbago with sciatica, unspecified side. TECHNIQUE: Magnetic resonance imaging (MRI) of the lumbar spine was performed without intravenous con trast. Sequences included sagittal T2-weighted FSE, sagittal T2-weighted FS FSE, sagittal T1-weighted FSE, and axial T2-weighted FSE. COMPARISON: Radiographs 12/13/2021, chest 2 views 12/07/2021 FINDINGS: Bone alignment is normal. There are 11 pairs of ribs. L5 is a transitional segment. Vertebr al body heights are normal. There is moderately decreased disc height from L1-L2 through L4-L5 with e ndplate remodeling. The distal spinal cord signal intensity is normal. The conus medullaris is at L1. The following disc levels are specifically discussed: L1-L2: The disc is bulging and has an annular fissure. There is mild right facet joint osteoarthritis . There is mild bilateral neural foraminal stenosis. There is mild central canal stenosis. L2-L3: The disc is bulging and has an annular fissure. There is mild right facet joint osteoarthritis . There is mild bilateral neural foraminal stenosis. There is mild central canal stenosis. L3-L4: The disc is bulging and has an annular fissure. There is mild right facet joint osteoarthritis . There is mild bilateral neural foraminal stenosis. There is mild central canal stenosis. L4-L5: The disc is bulging and has an annular fissure. There is severe right and moderate left facet joint osteoarthritis. There is mild bilateral neural foraminal stenosis. There is mild central canal stenosis. L5-S1: The disc does not extend beyond the endplate margin. There is no facet joint osteoarthritis. T here is no neural foraminal stenosis. There is no central canal stenosis. IMPRESSION: 1. Moderate lumbar spondylosis. Reviewed, dictated and finalized at location A.
== END 2022-01-05 14:03 | disposition home or self-care (01) ==
PROVIDERS: PCP Family Medicine; Visit Provider Family Medicine
DX: M54.40 Lumbago with sciatica, unspecified side (principal); G89.29 Other chronic pain; M47.896 Other spondylosis, lumbar region
CPT/HCPCS: 72148

== ENCOUNTER 2024-02-27 00:57 | Day surgery (SDC) | payer MEDICARE, SELFPAY ==
[2024-02-13 10:07] VITALS: BMI 30.6
--- NOTE | 2024-02-26 14:03 | PC.NURSE ---
Pt notified on 02/13/24 as to when to stop their Xarelto, last dose on 02/23. Pt stated understanding.
[2024-02-27 07:13] VITALS: BP 148/82; PULSE 57; RESP 18; TEMP 36.1; O2SAT 99; BMI 31.5
[2024-02-27] MEDS: LACTATED RINGERS 1,000 ML 150 ML IV CONT (07:21)
--- NOTE | 2024-02-27 07:22 | WPDANESEPPF ---
Anes - Initial Pre Proc Eval Procedure: Operation Date: 02/27/24 07:30 Proposed Procedures p Colonoscopy - Chico Paniagua MD Date/Time: 02/27/24 07:22 Surgeon: Chico Paniagua MD Pre Op Diagnosis: Benign neoplasm of colon unspecified Patient Data Age: 73 Gender: M Height: 1.75 m Weight: 96.8 kg Last Vital Signs Temp 97 F L 02/27/24 07:13 Pulse 57 L 02/27/24 07:13 Resp 18 02/27/24 07:13 BP 148/82 H 02/27/24 07:13 Pulse Ox 99 02/27/24 07:13 O2 Del Method Room Air 02/27/24 07:13 Allergies Allergy/AdvReac Type Severity Reaction Status Date / Time No Known Allergies Allergy Verified 02/27/24 07:12 Home Medications Medication Instructions Recorded Confirmed Type cyanocobalamin (vitamin B-12) 1,000 mcg PO DAILY 11/18/21 02/27/24 History 1,000 mcg tablet atorvastatin 20 mg tablet (Lipitor) 20 mg PO DAILY 12/08/21 02/27/24 History rivaroxaban 20 mg tablet (Xarelto) 20 mg PO DAILY 01/23/22 02/27/24 History hydroxychloroquine 200 mg tablet 400 mg PO DAILY #30 tabs 06/07/22 02/27/24 Rx doxazosin 8 mg tablet 8 mg PO QHS #90 tabs 11/08/23 02/27/24 Rx lisinopril 40 mg tablet 40 mg PO BID 11/08/23 02/27/24 History sildenafil (pulm.hypertension) 20 20 mg PO .COMPLEX PRN sexual 11/08/23 02/27/24 Rx mg tablet activity #90 tabs sodium,potassium,mag sulfates 17.5 See Rx Instructions PO .COMPLEX 11/20/23 02/27/24 Rx gram-3.13 gram-1.6 gram oral soln #354 mL (Suprep Bowel Prep Kit) venlafaxine 50 mg tablet 50 mg PO DAILY 02/13/24 02/27/24 History Patient hx anesthesia problems: none Family hx anesthesia problems: none Results Review: All pre-operative results and documents have been reviewed as part of the pre-operative evaluation. [facility] Past Medical History Medical History (Updated 11/08/23 @ 14:20 by Sudeep Burnett MD) Acute bronchitis (~11/02/22) Acute non-recurrent maxillary sinusitis (~11/02/22) Acute prostatitis with hematuria Adenomatous colon polyp 2 tubular adenomas of the cecum on colonoscopy 03/21/2023 TALI (acute kidney injury) Normal renal function 12/20/2021 with BUN 17 and creatinine 0.96. Altitude sickness preventative measures At low risk for fall Atrial flutter (~12/21/21) BMI 30.0-30.9,adult BMI 31.0-31.9,adult BMI 33.0-33.9,adult Chronic low back pain with sciatica X-ray 12/13/2021 with multilevel degenerative disc disease. Osteopenia. MRI of the lumbar spine on 01/05/2022 reveals moderate lumbar spondylosis and degenerative arthritic changes. Cognitive decline (~06/02/21) the patient scored 21/30 on his cognitive exam 06/02/2021. Cognitive screening 26/30 on 06/05/2022. Contusion of right knee (~11/2022) COVID-19 (08/16/20) Dyspnea on exertion Edema, peripheral (~01/2022) Elevated liver enzymes AST 51, ALT elevated at 62 and alkaline phosphatase elevated at 134 on 12/08/2021. GGT 99, AST 28, ALT 43 on 12/20/2021. AST 22, ALT 32 on 06/05/2023. Encounter for prostate cancer screening PSA 2.61 on 06/05/2023. Generalized weakness Leukopenia WBC normal at 4.8 on 11/15/2021. 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 Sarcoidosis multiple sites treated with hydroxychloroquine Tachycardia Vitamin B12 deficiency anemia (11/15/21) Level low at 339 with goal greater than 400 on 11/15/2021. Level normal at 837 with folic acid 13.1 and hemoglobin 14.2 on 05/19/2022. Level normal at 737 with folic acid 18.6 on 06/05/2023. Family History Family History Mother Patient's mother is , Onset Age: 92 Grandparent Cerebrovascular accident, Onset Age: 88 Father Family history of lung cancer, Onset Age: 58 Social History Social History (Updated 11/08/23 @ 13:18 by Pallavi Garza
--- NOTE | 2024-02-27 07:28 | PM.HPGS ---
History of Present Illness History of Present Illness Consent: Risks, benefits, and alternatives have been discussed and questions answered. Patient agrees to proceed with procedure. Chief complaint: Benign neoplasm of colon unspecified Narrative: Eric Rebollar is a 73 year old male here for colonoscopy, history of a rectal carcinoma that was identified and removed surgically at [facility] in 2019. In March of 2023 follow-up colonoscopy revealed a large sessile polyp in the cecum. This was removed piecemeal fashion and a clip was placed. Review of Systems Review of Systems: All systems reviewed & are unremarkable except as noted in HPI and below PMFSH Past Medical History Medical History (Updated 11/08/23 @ 14:20 by Sudeep Burnett MD) Acute bronchitis (~11/02/22) Acute non-recurrent maxillary sinusitis (~11/02/22) Acute prostatitis with hematuria Adenomatous colon polyp 2 tubular adenomas of the cecum on colonoscopy 03/21/2023 TALI (acute kidney injury) Normal renal function 12/20/2021 with BUN 17 and creatinine 0.96. Altitude sickness preventative measures At low risk for fall Atrial flutter (~12/21/21) BMI 30.0-30.9,adult BMI 31.0-31.9,adult BMI 33.0-33.9,adult Chronic low back pain with sciatica X-ray 12/13/2021 with multilevel degenerative disc disease. Osteopenia. MRI of the lumbar spine on 01/05/2022 reveals moderate lumbar spondylosis and degenerative arthritic changes. Cognitive decline (~06/02/21) the patient scored 21/30 on his cognitive exam 06/02/2021. Cognitive screening 26/30 on 06/05/2022. Contusion of right knee (~11/2022) COVID-19 (08/16/20) Dyspnea on exertion Edema, peripheral (~01/2022) Elevated liver enzymes AST 51, ALT elevated at 62 and alkaline phosphatase elevated at 134 on 12/08/2021. GGT 99, AST 28, ALT 43 on 12/20/2021. AST 22, ALT 32 on 06/05/2023. Encounter for prostate cancer screening PSA 2.61 on 06/05/2023. Generalized weakness Leukopenia WBC normal at 4.8 on 11/15/2021. 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 Sarcoidosis multiple sites treated with hydroxychloroquine Tachycardia Vitamin B12 deficiency anemia (11/15/21) Level low at 339 with goal greater than 400 on 11/15/2021. Level normal at 837 with folic acid 13.1 and hemoglobin 14.2 on 05/19/2022. Level normal at 737 with folic acid 18.6 on 06/05/2023. Family History Family History Mother Patient's mother is , Onset Age: 92 Grandparent Cerebrovascular accident, Onset Age: 88 Father Family history of lung cancer, Onset Age: 58 Social History Social History (Updated 11/08/23 @ 13:18 by Pallavi Jimenez MA) Smoking status: Never smoker Alcohol intake: current Drinks per week: 5 Alcohol use details: cocktails Substance use: never Substance use type: does not use Lack of Transportation: No Lack of Food: Never True Current Housing: I Have Housing Concerned About Future Housing: No Difficulty Paying Gas/Electric Bills: No Difficulty Paying for Meds: No Currently Unemployed: YES Education: Bachelor's Degree Difficulty w/ Childcare or Family Care: No Living arrangements: with family Gender identity (if verbalized by the patient): Male Spiritual care concerns: No Meds Home Medications and Allergies Home Medications Medication Instructions Recorded Confirmed Type cyanocobalamin (vitamin B-12) 1,000 mcg PO DAILY 11/18/21 02/27/24 History 1,000 mcg tablet atorvastatin 20 mg tablet (Lipitor) 20 mg PO DAILY 12/08/21 02/27/24 History rivaroxaban 20 mg tablet (Xarelto) 20 mg PO DAILY 01/23/22 02/27/24 History hydroxychloroquine 200 mg tablet 400 mg PO DAILY #30 tabs 06/07/22 02/27/24 Rx doxazosin 8 mg tablet 8 mg PO
[2024-02-27 08:21] VITALS: BP 118/67; PULSE 45; RESP 15; O2SAT 98
[2024-02-27 08:31] VITALS: BP 127/71; PULSE 46; RESP 16; O2SAT 98
[2024-02-27 08:41] VITALS: BP 163/77; PULSE 50; RESP 18; O2SAT 100
== END 2024-02-27 08:53 | disposition home or self-care (01) ==
PROVIDERS: PCP Family Medicine; Visit Provider Internal Medicine Gastroenterology
PROC: 0DJD8ZZ Inspection of Lower Intestinal Tract, Via Natural or Artificial Opening Endoscopic (ICD-10-PCS; CPT 45378; principal; 2024-02-27 07:30)
DX: Z08 Encounter for follow-up examination after completed treatment for malignant neoplasm (principal); D12.0 Benign neoplasm of cecum; K57.30 Diverticulosis of large intestine without perforation or abscess without bleeding; K64.8 Other hemorrhoids; Z90.49 Acquired absence of other specified parts of digestive tract; Z98.0 Intestinal bypass and anastomosis status; Z85.048 Personal history of other malignant neoplasm of rectum, rectosigmoid junction, and anus; I42.8 Other cardiomyopathies; I48.92 Unspecified atrial flutter; D86.9 Sarcoidosis, unspecified; D51.3 Other dietary vitamin B12 deficiency anemia; E66.9 Obesity, unspecified; Z68.31 Body mass index [BMI] 31.0-31.9, adult; Z79.01 Long term (current) use of anticoagulants
CPT/HCPCS: 45381; 45385; 88305; J2704; J7120

== ENCOUNTER 2024-03-05 08:58 | Emergency (ER) | payer MEDICARE, SELFPAY ==
--- NOTE | ~2024-03-05 | CT_ITS ---
CTA brain carotid Ordering provider: Anjali Shay PA-C History: . cva w/u, aphasia, [place] . Comparison: None. Technique: CT angiogram head and neck was performed following timed intravenous injection of contrast . Thin slice axial images and reformatted coronal images were obtained. Three dimensional reformatted images of the brain were also obtained using a [employer] workstation. Radiation reduction technique ut ilized. DLP is 2716.88 mGy-cm. 100 mL Omnipaque 350 was given IV. FINDINGS: HEAD: --ANTERIOR AND MIDDLE CEREBRAL ARTERIES AND BRANCHES: Normal caliber and contour. --INTERNAL CAROTID ARTERIES: Normal caliber and contour. --BASILAR ARTERY AND BRANCHES: Normal caliber and contour. No atheromatous disease. --POSTERIOR CEREBRAL ARTERIES: The distal branches of the right anterior cerebral artery are not well demonstrated. Otherwise, Normal caliber and contour --POSTERIOR COMMUNICATING ARTERIES: Not visualized which is probably related to congenital absence or small size. --ANEURYSM: None visualized. --BRAIN: Please refer to report of CT head performed the same day. --BONES AND SUPERFICIAL SOFT TISSUES: Please refer to report of CT head performed the same day. --PARANASAL SINUSES AND MASTOIDS: Please refer to report of CT head done the same day. NECK: --RIGHT CERVICAL CAROTID SYSTEM: Normal caliber and contour. Percent stenosis per NASCET criteria is 0%. No carotid dissection. Otherwise, no significant atheromatous disease or stenosis of the cervica l carotid system. --LEFT CERVICAL CAROTID SYSTEM: Normal caliber and contour. Percent stenosis per NASCET criteria is 0%. No carotid dissection. Otherwise, no significant atheromatous disease or stenosis of the cervical carotid system. --VERTEBRAL ARTERIES: Normal caliber and contour. --VISUALIZED AORTIC ARCH AND BRANCHING VESSELS: Normal caliber and contour. No significant atheromato us disease. --SOFT TISSUES: Normal. --CERVICAL SPINE: Age appropriate degenerative changes. IMPRESSION: 1. Normal CTA head and neck. Percent stenosis per NASCET criteria is 0%. 2. The distal branches of the right posterior cerebral artery are not well demonstrated. Reviewed, dictated and finalized at location A. IMPRESSION: 1. Normal CTA head and neck. Percent stenosis per NASCET criteria is 0%. 2. The distal branches of the right posterior cerebral artery are not well dem onstrated.
--- NOTE | ~2024-03-05 | CT_ITS ---
EXAMINATION: CT brain wo con DATE: 03/05/2024 09:49 INDICATION: Head injury. TECHNIQUE: Computed tomography (CT) of the head was performed without intravenous contrast. The mA wa s adjusted according to patient size. Iterative reconstruction technique was employed. The dose-lengt h product was 1664.67 mGy-cm. COMPARISON: None FINDINGS: There are scattered areas of low attenuation in the cerebral white matter. There is no intr acranial hemorrhage, acute infarction, or abnormal intracranial mass lesion. The ventricles are mark l in size. The orbits are normal. The paranasal sinuses are clear. There is old fracture deformity of anterior wall of right maxillary sinus. The mastoid air cells are normal. Scalp skin ivan are not ed. IMPRESSION: 1. Moderate nonspecific cerebral white matter disease, which likely represents chronic small vessel i schemic disease. Reviewed, dictated and finalized at location A. IMPRESSION: 1. Moderate nonspecific cerebral white matter disease, which likely represents chronic small vessel ischemic disease.
--- NOTE | ~2024-03-05 | CT_ITS ---
CT of the Abdomen and Pelvis: Indication: Rectal bleeding Technique: 2.5 mm axial scans were obtained through the abdomen and pelvis following intravenous adm inistration of 100 cc of Omnipaque 350. Dose reduction technique was used on this scan by utilizing a utomated exposure control and iterative reconstruction technique. The dose-length product (DLP) was 2 716.88 mGy-cm. COMPARISON: 12/07/2021 Findings: Scans through the lung bases are unremarkable. The liver, spleen, pancreas, gallbladder, adrenals and kidneys are within normal limits, several smal l bilateral renal cysts. There are atherosclerotic calcifications of the aorta. No lymphadenopathy. No bowel obstruction or bowel wall thickening. There is no evidence to suggest acute appendicitis. Images through the pelvis were performed. Urinary bladder unremarkable. Prostate gland enlarged. No a scites. Impression: No significant abnormalities seen. Reviewed, dictated and finalized at [facility]. Impression: No significant abnormalities seen.
--- NOTE | ~2024-03-05 | XR_ITS ---
EXAMINATION: XR knee LT 3V DATE: 03/05/2024 10:56 INDICATION: Left knee pain. Fall. TECHNIQUE: 3 views of left knee were obtained. COMPARISON: None. FINDINGS: Bone alignment is normal. No fracture. There is mild tricompartmental osteoarthritis. There is a moderate-sized knee joint effusion. IMPRESSION: 1. Mild left knee osteoarthritis. 2. Moderate-sized left knee joint effusion. Reviewed, dictated and finalized at location A.
[2024-03-05 09:07] VITALS: BP 85/56; PULSE 66; RESP 16; TEMP 36.6; O2SAT 100
[2024-03-05] MEDS: SODIUM CHLORIDE 0.9% IV 1,000 ML 999 ML IV CONT ×2 (09:12→10:57)
--- NOTE | 2024-03-05 09:15 | ECG_ITS ---
Test Date: 2024-03-05 09:19:10 Measurements Intervals [place] Rate: 59 P: 11 VT: 175 QRS: 11 QRSD: 112 T: 59 QT: 435 QTc: 433 Interpretive Statements SINUS BRADYCARDIA INTRAVENTRICULAR CONDUCTION DELAY BORDERLINE ST-T WAVE ABNORMALITY- HIGH LATERAL LEADS BASELINE ARTIFACT- I, II, III, AVR, AVL, AVF, V1 BORDERLINE ECG No previous ECG available for comparison Electronically Signed On 03-05-2024 09:25:28 CDT by Lavelle Vallejo D.O.
[2024-03-05 09:22] LABS: Basophils Percent Auto 0.2 % (0.2-1.2); Hematocrit 31.8 % (42.0-52.0); Hemoglobin 10.7 g/dL (14.0-18.0); Immature Granulocyte Absolute 0.06 K/mm3 (0.00-0.031); Immature Granulocyte Percent A 0.5 % (0-0.5); Lymphocytes Absolute Auto 1.18 K/mm3 (0.9-3.2); Lymphocytes Percent Auto 9.6 % (18.3-44.2); Mean Corpuscular HGB Conc 33.6 g/dl (32-36); Mean Corpuscular Hemoglobin 33.4 pg (26-34); Mean Corpuscular Volume 99.4 fl (80-100); Mean Platelet Volume 9.6 fl (7.4-10.4); Monocytes Absolute Auto 0.7 K/mm3 (0.1-0.6); Monocytes Percent Auto 5.8 % (2.6-8.5); Neutrophils Absolute Auto 10.4 K/mm3 (1.3-6.7); Neutrophils Percent Auto 83.9 % (45.5-73.1); Platelet Count Result 200 k/mm3 (150-375); Red Cell Distribution Width 13.2 % (11.5-14.5); White Blood Count 12.3 K/mm3 (4.5-10.0)
--- NOTE | 2024-03-05 09:22 | ED.GIBLEED ---
HPI - GI Bleed General Chief complaint: GI Bleed <BEN Sanders Last Filed: 03/05/24 15:58> Stated complaint: significant bleeding from rectum <BEN Sanders Last Filed: 03/05/24 15:58> Time Seen by Provider: 03/05/24 09:13 <BEN Sanders Last Filed: 03/05/24 15:58> Source: patient and family <BEN Sanders Last Filed: 03/05/24 15:58> Mode of arrival: ambulatory <BEN Sanders Last Filed: 03/05/24 15:58> Limitations: altered mental status and clinical condition <BEN Sanders Last Filed: 03/05/24 15:58> History of Present Illness HPI Narrative: Patient is a 73-year-old male who presents the ED with report of rectal bleeding. Patient is a poor historian, confused. at bedside assisted in providing information. Reports patient had a colonoscopy last Sunday by Dr. Clifton, had a large polyp that had to be cut into smaller pieces. Also had a mole removal surgery on Sunday. He began having bright red rectal bleeding yesterday/last night with diarrhea. Reported a profuse amount of rectal bleeding, at least 7-8 episodes of pure blood splashing into the toilet. reports patient was very weak and fell 3 times throughout the night. Patient reported he felt extremely weak and dizzy from the blood loss. One of the falls, patient did hit his head and broke a decorative vase. reports patient resumed his Xarelto yesterday. Patient is unable to describe any significant abdominal pain. He seems to keep repeating that he is having significant bleeding, difficulty following commands or answering other questions. <BEN Sanders Last Filed: 03/05/24 15:58> Related Data Home medications: Home Medications Medication Instructions Recorded Confirmed cyanocobalamin (vitamin B-12) 1,000 mcg PO DAILY 11/18/21 02/27/24 1,000 mcg tablet atorvastatin 20 mg tablet (Lipitor) 20 mg PO DAILY 12/08/21 02/27/24 rivaroxaban 20 mg tablet (Xarelto) 20 mg PO DAILY 01/23/22 02/27/24 lisinopril 40 mg tablet 40 mg PO BID 11/08/23 02/27/24 venlafaxine 50 mg tablet 50 mg PO DAILY 02/13/24 02/27/24 <Anjali Shay PA-C - Last Filed: 03/05/24 15:58> Allergies/Adverse reactions: Allergies Allergy/AdvReac Type Severity Reaction Status Date / Time No Known Allergies Allergy Verified 03/05/24 08:59 <Anjali Shay PA-C - Last Filed: 03/05/24 15:58> Review of Systems Review of Systems: ROS unobtainable: Yes unobtainable due to mental status <Anjali Shay PA-C - Last Filed: 03/05/24 15:58> [facility] Past Medical History Medical History: Medical History Acute bronchitis (~11/02/22) Acute non-recurrent maxillary sinusitis (~11/02/22) Acute prostatitis with hematuria Adenomatous colon polyp 2 tubular adenomas of the cecum on colonoscopy 03/21/2023. tubular adenoma on 02/27/2024. TALI (acute kidney injury) Normal renal function 12/20/2021 with BUN 17 and creatinine 0.96. Altitude sickness preventative measures At low risk for fall Atrial flutter (~12/21/21) BMI 30.0-30.9,adult BMI 31.0-31.9,adult BMI 33.0-33.9,adult Chronic low back pain with sciatica X-ray 12/13/2021 with multilevel degenerative disc disease. Osteopenia. MRI of the lumbar spine on 01/05/2022 reveals moderate lumbar spondylosis and degenerative arthritic changes. Cognitive decline (~06/02/21) the patient scored 21/30 on his cognitive exam 06/02/2021. Cognitive screening 26/30 on 06/05/2022. Contusion of right knee (~11/2022) COVID-19 (08/16/20) Dyspnea on exertion Edema, peripheral (~01/2022) Elevated liver enzymes AST 51, ALT elevated at 62 and alkaline phosphatase elevated at 134 on 12/08/2021. GGT 99, AST 28, ALT 43 on 12/20/2021. AST 22, ALT 32 on 06/05/2023. Encounter for prostate cancer screening PSA 2.61 on 06/05/2023.
[2024-03-05 09:32] LABS: Lactic Acid Reflex 3.8 mmol/L (0.7-2.0)
[2024-03-05 09:33] LABS: INR 1.4; Partial Thromboplastin Time 32.1 Seconds (22.3-36.8); Prothrombin Time 17.6 Seconds (11.1-14.7)
[2024-03-05 09:34] LABS: Alanine Aminotransferase 23 U/L (6-50); Albumin Level 3.6 g/dL (3.5-5.1); Alkaline Phosphatase 32 U/L (38-126); Anion Gap 12 mmol/L (4-12); Aspartate Amino Transferase 20 U/L (17-59); Bilirubin,Total 0.9 mg/dL (0.2-1.3); Blood Urea Nitrogen 24 mg/dL (9-20); Calcium 8.6 mg/dL (8.4-10.2); Carbon Dioxide 22 mmol/L (22-30); Chloride 105 mmol/L (98-107); Estimated CRCL calculation 43 ml/min; Estimated Glomerular Filt Rate 46; Glucose 171 mg/dL (65-110); Potassium 4.1 mmol/L (3.4-5.0); Sodium 139 mmol/L (137-145)
[2024-03-05 09:42] LABS: Estimated CRCL calculation 40 ml/min; Estimated Glomerular Filt Rate 43
[2024-03-05 10:14] VITALS: BP 114/57; PULSE 69; RESP 16; O2SAT 100
[2024-03-05 12:02] LABS: Add Urine Microscopic? YES; Appearance Urine Clear (Clear); Bacteria Urine None Seen /hpf; Bilirubin Urine Negative (Negative); Blood Urine Non-Hemolyzed Trace (Negative); Color Urine Yellow (Yellow); Glucose Urine UA Negative (Negative); Ketones Urine Trace mg/dL (Negative); Leukocyte Esterase Ur Negative LEU/UL (Negative); Nitrate Urine Negative (Negative); Protein Urine Trace mg/dL (Negative); Specific Grav Ur > 1.045 (1.001-1.035); Squamous Epithelial Cell Urine Occasional /hpf (Few); Urobilinogen Urine 0.2 mg/dL (<2.0); WBC Urine 0-5 /hpf (0-3); pH Urine 6.5 (5.0-9.0)
[2024-03-05 12:19] LABS: Reflex Lactic Acid Yes or No Add Lactic
[2024-03-05 12:35] VITALS: BP 118/69; PULSE 63; RESP 12; O2SAT 100
[2024-03-05 13:30] LABS: Lactic Acid 1.6 mmol/L (0.7-2.0)
[2024-03-05 13:47] VITALS: BP 130/62; PULSE 85; RESP 18; O2SAT 99
[2024-03-05] MEDS: HUMAN PROTHROMBIN COMPLEX(PCC) 2,500 UNITS in PREMIXIV 0 ML 504 UNITS IV CONT (14:26)
== END 2024-03-05 15:35 | disposition short-term general hospital (02) ==
LOC: ANHED 09:37
PROVIDERS: Student in an Organized Health Care Education/Training Program; Emergency Provider Physician Assistant; PCP Family Medicine
DX: K92.2 Gastrointestinal hemorrhage, unspecified (principal); D64.9 Anemia, unspecified; R41.82 Altered mental status, unspecified; R29.6 Repeated falls; I42.8 Other cardiomyopathies; E66.9 Obesity, unspecified; Z68.29 Body mass index [BMI] 29.0-29.9, adult; D51.9 Vitamin B12 deficiency anemia, unspecified; D86.9 Sarcoidosis, unspecified; Z86.010 Personal history of colon polyps; Z86.16 Personal history of COVID-19; Z79.01 Long term (current) use of anticoagulants; Z79.899 Other long term (current) drug therapy; M17.12 Unilateral primary osteoarthritis, left knee; R00.1 Bradycardia, unspecified; I45.9 Conduction disorder, unspecified; R94.31 Abnormal electrocardiogram [ECG] [EKG]; R90.82 White matter disease, unspecified
CPT/HCPCS: 36415; 70450; 70496; 70498; 73562; 74177; 80053; 81001; 83605; 85025; 85610; 85730; 86850; 86900; 86901; 90471; 93005; 96361; 96374; 99285; J7030; J7168; Q9967